=== PATIENT | male | born 1950 | race Caucasian/White ===

== ENCOUNTER 2016-09-09 20:12 | Inpatient (IN) | payer MEDICARE, OTHER ==
[2016-09-09 21:08] LABS: MPV 7.8 fL (7.4-10.4)
[2016-09-09 21:17] LABS: BLOOD UREA NITROGEN 11 MG/DL (9-20); CALCIUM 8.4 MG/DL (8.4-10.2); CALCULATED OSMOLALITY 257 MOs/Kg (270-290); CHLORIDE 96 mEq/L (98-107); GLUCOSE 99 MG/DL (70-99); SODIUM LEVEL 134 mEq/L (137-146); TOTAL PROTEIN 7.2 G/DL (6.3-8.2)
[2016-09-09 22:47] LABS: ALL NEG? NO
--- NOTE | 2016-09-09 22:59 | EDPRACDOC ---
- General Information Chief Complaint: Generalized Weakness Stated Complaint: UTI Time Seen by Provider: 09/09/16 22:33 Information Source: Patient Home Medications: Home Medications Amitriptyline HCl [Elavil] 100 mg PO HS 09/18/13 Benazepril/Hydrochlorothiazide [Lotensin Hct Tablet (20mg/25mg)] 1 tab PO DAILY 09/18/13 Diazepam [Valium] 10 mg PO TID PRN 09/18/13 Oxycodone Immediate Release [Oxycodone Immediate Release (OxyIR)] 15 mg PO TID PRN 09/18/13 Zolpidem Tartrate [Ambien] 10 mg PO HS PRN 09/18/13 Aspirin [Aspirin EC] 325 mg PO DAILY #120 tablet. 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 INTERMITTENT FEVERS. NO PCP EVAL FOR THIS YET. STABLE MEDICATIONS BY PCP AT [facility]. POS COUGH, POS DYSURIA. ED Past Medical History - History Reviewed Yes Nurses notes reviewed and agree except as marked Information Unobtainable: Yes Unable to obtain information due to patient condition (MOST INFOR FROM DAUGHTER) - Patient Medical History Cardiac History: Reports: Hypertension, Heart Attack (1995), Cardiac Catheterization Respiratory History: Reports: Asthma, COPD, Pneumonia (2012) GI/ History: Reports: Gastroesophageal Reflux, Ulcer (15-16 years) Musculoskeletal History: Reports: Arthritis, Osteoarthritis Psychological History: Reports: Depression, Anxiety Systemic History: Reports: Cancer, Anemia Additional Past Medical History: LUMBAR SURG S/P SCI WITH DELIA LE WEAKNESS Surgical History: Reports: Cardiac Catheterization Additional Past Surgical History: LUMBAR SURG S/P SCI WITH DELIA LE WEAKNESS - Family Medical History Reports: Hypertension (brother), Diabetes (MOM AND BROTHER), Cancer (MOTHER), Stroke (BROTHER), Cardiac Disorders (dad) - Social Medical History Smoking Status: Heavy tobacco smoker (5 or more cigarettes/day or daily pipe/ cigar) EDM Review of Systems - Review of Systems ROS Negative Except as Marked: Yes All systems reviewed and were negative except as marked ROS Unobtainable: Yes Review of systems cannot be obtained due to the patient's medical condition (MOST INFO FROM DAUGHTER) Constitutional: Fever, Loss of Appetite, Weakness - Physical Exam Constitutional: Alert, Cachectic, Confused Oriented to: Person, Place, Other (INTERMITTENT HALLUCINATIONS AND RAMBLING CONVERSTATION) Last recorded Vital Signs: Last Vital Signs Temp 98.5 F 09/09/16 20:49 Pulse 93 09/09/16 22:38 Resp 20 09/09/16 22:38 BP 127/72 09/09/16 22:38 Pulse Ox 91 09/09/16 22:38 Oxygen Pulse Oxygen Saturation 91 O2 Device Room Air Oxygen Flow Rate Fraction of Inspired Oxygen ( FIO2) - HEENT Head: Normal Eye Exam: negative: Pale Conjunctiva, Scleral Icterus Oropharynx: Membranes Dry Nose: No Symptoms Reported Neck: Normal. negative: Edema - Respiratory/Cardiovascular Respiratory: Rales (DELIA LE L>R). negative: Accessory Muscle Use, Tachypnea Cardiovascular: Normal - GI Auscultation: Normal Palpation: Normal Tenderness: Non tender Ingram's Sign: Negative - Musculoskeletal Back: Normal. negative: CVA Tenderness, Thoracic Step-off, Lumbar Step-off, Thoracic TTP, Lumbar TTP Extremities: Normal. negative: Pedal Edema - Integumentary Skin: Normal, Warm, Dry - Neurologic Memory Impaired: Short-term Motor Function: Normal Mood Description: Flat Thought: Flight of Ideas, Rambling Conversation. negative: Coherent - Differential Diagnosis Dehydration, Delirium tr, Hypercalcemia, Hypernatremia, Hyponatremia, Drug Overdose, Medication toxicity, Sepsis, UTI - Results 09/09/16 20:52 09/09/16 20:52 WBC 28.1 xk/uL (3.8-10.8) H 09/09/16 20:52 RBC 4.65 xM/uL (4.70-6.10) L 09/09/16 20:52 Hgb 14.4 g/dL (14.0-18.0) 09/09/16 20:52 Hct 42.6 % (42-52) 09/09/16 20:52 MCV 92 fL (80-94) 09/09/16 20:52 MCH 31.0 pg (27-32) 09/09/16 20:52 MCHC 33.8 g/dl (33-36) 09/09/16 20:52 RDW 15.1 % (11.5-14.5) H 09/09/16 20:52 Plt Count 251 xk/uL (130-400) 09/09/16 20:52 MPV 7.8 fL (7.4-10.4) 09/09/16 20:52 Sodium 134 mEq/L (137-146) L 09/09/16 20:52 Potassium 4.4 mEq/L (3.5-5.1) 09/09/16 20:52 Chloride 96 mEq/L (98-107) L 09/09/16 20:52 Carbon Dioxide 30 mMOL/L (22-33) 09/09/16 20:52 Anion Gap 12 mEq/L (8-16) 09/09/16 20:52 BUN 11 MG/DL (9-20) 09/09/16 20:52 Creatinine 0.80 MG/DL (0.66-1.25) 09/09/16 20:52 Estimated GFR (MDRD) > 60 mL/min (>=60) 09/09/16 20:52 Glucose 99 MG/DL (70-99) 09/09/16 20:52 Calculated Osmolality 257 MOs/Kg (270-290) L 09/09/16 20:52 Calcium 8.4 MG/DL (8.4-10.2) 09/09/16 20:52 Total Bilirubin 0.8 MG/DL (0.2-1.3) 09/09/16 20:52 AST 28 IU/L (17-59) 09/09/16 20:52 ALT 26 IU/L (21-72) 09/09/16 20:52 Alkaline Phosphatase 84 IU/L (50-160) 09/09/16 20:52 Total Protein 7.2 G/DL (6.3-8.2) 09/09/16 20:52 Albumin 4.0 G/DL (3.5-5.0) 09/09/16 20:52 Lipase < 10 U/L (23-300) L 09/09/16 20:52 Lab Results 09/09/16 09/09/16 20:52 20:52 WBC 28.1 H RBC 4.65 L Hgb 14.4 Hct 42.6 MCV 92 MCH 31.0 MCHC 33.8 RDW 15.1 H Plt Count 251 MPV 7.8 Sodium 134 L Potassium 4.4 Chloride 96 L Carbon Dioxide 30 Anion Gap 12 BUN 11 Creatinine 0.80 Estimated GFR (MDRD) > 60 Glucose 99 Calculated Osmolality 257 L Calcium 8.4 Total Bilirubin 0.8 AST 28 ALT 26 Alkaline Phosphatase 84 Total Protein 7.2 Albumin 4.0 Lipase < 10 L - EKG EKG #1 EKG Time: 23:07 -: Yes EKG interpreted by me Rate: bpm: 86 Cordell: Normal Block: AVB Hypertrophy: None ST: [facility] ED Critical Care Note - Critical Care Note Total Time (mins): 35 - Departure Disposition: Admit IP To This Hospital Condition: Stable Final Diagnosis: Community acquired bacterial pneumonia, Delirium due to another medical condition, COPD exacerbation, Acute respiratory failure with hypoxia Instructions: Weakness (General) Education/Counseling Given To: Patient, Family Member Education/Counseling Given Regarding: Diagnosis, Treatment Referrals: None,No Provider [Primary Care Provider] - One Week Decision to Admit Time: 23:55 Decision to admit date: 09/10/16 Decision to admit: from ED - Physician Consulted Hospitalist Time Called: 23:52 Provider Called: Mirza Pablo Time Assembler Returned Call: 23:55
[2016-09-09 23:05] LABS: LEUKOCYTES/URINE NEG (NEGATIVE); NITRITE/URINE NEG (NEGATIVE); RBC/URINE 0-2 (0-2); URINE OCCULT BLOOD NEG (NEG/TRACE); WBC/URINE 0-2 (0-2)
[2016-09-09 23:06] LABS: MDMA* NEG (NEGATIVE); METHAMPHETAMINES NEG (NEGATIVE); OXYCODONE *POSITIVE* (NEGATIVE)
[2016-09-09 23:18] LABS: SEG NEUTROPHIL 86 % (45-76)
[2016-09-09 23:21] LABS: ABG Draw Site Left Radial; ALLEN'S TEST PASS; BEb 6.5 (+/- 2); TCO2 34.4 MMOL/L (23-27)
[2016-09-09] MEDS ORDERED: METHYLPREDNISOLONE 125 MG/2 ML VIAL IV ONE (23:44)
[2016-09-09] MEDS ORDERED: Albuterol/Ipratropium Neb 3 ML NEB NEB ONE (23:44)
[2016-09-09] MEDS ORDERED: CEFTRIAXONE 1 GM in D5W 100 ML IV ONE (23:45)
[2016-09-09] MEDS ORDERED: AZITHROMYCIN 500 MG in D5W 250 ML IV ONE (23:45)
[2016-09-09 23:46] LABS: ETOH-MGDL < 10 mg/dL
[2016-09-10] MEDS ORDERED: NS 1,000 ML IV ONE (00:01)
[2016-09-10] MEDS: NS 1,000 ML IV ONE ×2 (00:07→00:08)
--- NOTE | 2016-09-10 00:33 | DIRPT ---
CLINICAL DATA: Shortness of breath. Confusion for 1 week. Intermittent fever. EXAM: CHEST 2 VIEW COMPARISON: 10/24/2013 FINDINGS: Ill-defined bibasilar opacities, left greater than right. Heart size and mediastinal contours are normal. No pulmonary edema. No pleural effusion or pneumothorax. No acute osseous abnormalities are seen. IMPRESSION: Ill-defined bibasilar opacities, fever atelectasis. Pneumonia or aspiration could have a similar appearance. Electronically Signed By: Abeba Alvarez M.D. On: 09/10/2016 00:30
--- NOTE | 2016-09-10 00:59 | HISTPHYS ---
- Chief Complaint altered mental status, shortness of breath - History of Present Illness PRIMARY CARE PROVIDER: Elise Tan and Dr. Omi Trujillo HPI: The patient is 66 yo man with COPD and coronary artery disease who presents with shortness of breath and a sharp pain left upper chest. Woke up yesterday morning and just could not breathe. Tried sticking his head in the freezer and that did not help. He did not have the same feelings he had in 1995 when he had his heart attack. The issue today is primarily the shortness of breath. Last night he had some vomiting. At some point he became confused. Onset: Has had shortness of breath x 2 weeks but much worse yesterday. Duration : intermittent. Location: Left upper chest. Radiation: to back. Character: Sharp. Up to 8/10 at times. Mostly with coughing. Alleviated by: Nothing. Exacerbated by: With coughing and with pressing on the area. Associated Symptoms: Shortness of breath. Wheezing. Coughing productive of yellow sputum. Fever 102-103 several days. Chills. No diaphoresis. Chest pain, occasional palpitations. No weight gain in last week. No leg swelling. Nausea and vomiting. Treatments: none at home except usual medications. He stopped his blood pressure medications 2 years ago. - Medical History Cardiac History: Reports: Hypertension, Heart Attack (1995), Cardiac Catheterization Respiratory History: Reports: Asthma, COPD, Pneumonia (2012) GI/ History: Reports: Gastroesophageal Reflux, Ulcer (15-16 years) Musculoskeletal History: Reports: Arthritis (chronic pain. 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 10/25/13 Cefuroxime Axetil [Ceftin] 1 tab PO BID 12/27/13 Nitroglycerin 0.4 mg SL Q10MIN PRN 12/27/13 Amoxicillin 500 mg PO TID 12/29/13 Guaifenesin [Robitussin] 10 ml PO Q4H PRN 12/29/13 Oxycodone HCl/Acetaminophen [Percocet 5-325 mg Tablet] 1 tab PO Q4H PRN Above list is old and not yet updated. Patient takes short acting oxycodone and also an extended release narcotic. He also takes Valium. Will confirm home medications in the am. - Family History Reports: Hypertension (brother), Diabetes (MOM AND BROTHER), Cancer (MOTHER), Stroke (BROTHER), Cardiac Disorders (Father and brother with [place]. Mother heart disease.) - Social History Smoking Status: Heavy tobacco smoker (5 or more cigarettes/day or daily pipe/ cigar) (Currently between half and 1 ppd.) Social History: Denies: Alcohol Use, Substance Use Disorder - Review of Systems GENERAL: Fever, chills. No diaphoresis. Positive for fatigue/malaise. HEENT: No ear pain or discharge. No nasal discharge or bleeding. No throat pain or swelling. No eye pain or eye redness. RESPIRATORY: Cough, wheezing, and shortness of breath. CARDIOVASCULAR: Chest pain and palpitations. GI: Nausea and vomiting. No abdominal pain, diarrhea, constipation, or bloody stool. NEUROLOGICAL: No headache or focal weakness. INTEGUMENT: no rashes, itching, or lesions. LYMPHATIC SYSTEM: no lymph node swelling or pain. MUSCULOSKELETAL: no new pain or joint swelling. GENITOURINARY: No dysuria or hematuria. ENDOCRINE: No polyuria or polydipsia. HEME: No chronic anemia, bleeding, or easy bruising. - Physical Exam Vital Signs: Initial Vitals Temperature 98.5 F 09/09/16 20:49 Pulse Rate 92 09/09/16 20:49 Respiratory Rate 20 09/09/16 20:49 Blood Pressure 115/72 01/12/17 20:49 Pulse Oxygen Saturation 90 L 09/09/16 20:49 - Other Exam Other Exam Findings: GENERAL: Ill-appearing, well nourished, in acute distress. HEENT: Normocephalic, atraumatic; pupils equal and round. Nares patent, without discharge or bleeding. No oropharyngeal lesions or erythema. Mucous membranes are dry. NECK: is supple, no masses, trachea midline. RESPIRATORY: Clear to auscultation bilaterally. Chest wall movements are symmetric. Tachypnea. Bilateral rhonchi. Inspiratory and expiratory wheezing bilaterally. No use of accessory muscles to breathe. No rales. CARDIOVASCULAR: Normal S1, S2. Murmur 2/6 systolic. No rubs, or gallops. PMI non -displaced. Carotids: no carotid bruits. No bradycardia or tachycardia. DP pulses 2+ bilaterally. GI: soft, non-distended, normal active bowel sounds. No hepatosplenomegaly. Mild epigastric tenderness. INTEGUMENT: Clean, dry, and intact. No rashes. Nevus on right face that is very dark to black, approximately 0.5 cm diameter. MUSCULOSKELETAL: Moving all extremities. No cyanosis. No clubbing. Edema: none bilaterally. NEUROLOGICAL: Cranial nerves 2-12 grossly intact. Motor 4/5 throughout. Reflexes : 1+ bilaterally. Babinski: toes downgoing bilaterally. Intact Finger to nose. Sensory grossly intact to light touch. Intact rapid alternating movements bilaterally. No pronator drift. PSYCHIATRIC: Oriented to person and date. Thought he was in [facility] ICU. Normal and appropriate affect. LYMPHATIC: No cervical lymphadenopathy. No supraclavicular lymphadenopathy. - Lab Results Laboratory Results - last 24 hr 09/09/16 09/09/16 09/09/16 20:52 20:52 22:40 WBC 28.1 H RBC 4.65 L Hgb 14.4 Hct 42.6 MCV 92 MCH 31.0 MCHC 33.8 RDW 15.1 H Plt Count 251 MPV 7.8 Neut % (Auto) Cancelled Lymph % (Auto) Cancelled [place] % (Auto) Cancelled Eos % (Auto) Cancelled Baso % (Auto) Cancelled Absolute Neuts (auto) Cancelled Absolute Lymphs (auto) Cancelled Seg Neuts % (Manual) 86 H Band Neutrophils % 3 Lymphocytes % (Manual) 8 L Monocytes % (Manual) 3 Absolute Neutrophils 25.01 H Absolute Lymphocytes 2.25 Toxic Granulation Tr Platelet Estimate Norm RBC Morphology Norm Puncture Site pH pCO2 pO2 HCO3 Total CO2 Base Excess FiO2 % Specimen Drawn By Sodium 134 L Potassium 4.4 Chloride 96 L Carbon Dioxide 30 Anion Gap 12 BUN 11 Creatinine 0.80 Estimated GFR (MDRD) > 60 Glucose 99 Calculated Osmolality 257 L Lactic Acid Calcium 8.4 Total Bilirubin 0.8 AST 28 ALT 26 Alkaline Phosphatase 84 Total Protein 7.2 Albumin 4.0 Lipase < 10 L Urine Color Yellow Urine Clarity Clear Urine pH 6.0 Ur Specific Wanda 1.010 Urine Protein Neg Urine Glucose (UA) Neg Urine Ketones 1+ H Urine Occult Blood Neg Urine Nitrite Neg Urine Bilirubin Neg Urine Urobilinogen <2.0 Ur Leukocyte Esterase Neg Urine RBC 0-2 Urine WBC 0-2 Ur Epithelial Cells Occ Urine Mucus Occ Urine Opiates Screen Ur Oxycodone Screen Urine Methadone Screen Ur Barbiturates Screen Ur Tricyclics Screen Ur Phencyclidine Scrn Ur Amphetamines Screen U Methamphetamines Scrn Urine MDMA Screen U Benzodiazepines Scrn Urine Cocaine Screen Ur THC Screen Plasma/Serum Ethyl Alc 09/09/16 09/09/16 09/09/16 22:40 23:04 23:04 WBC RBC Hgb Hct MCV MCH MCHC RDW Plt Count MPV Neut % (Auto) Lymph % (Auto) [place] % (Auto) Eos % (Auto) Baso % (Auto) Absolute Neuts (auto) Absolute Lymphs (auto) Seg Neuts % (Manual) Band Neutrophils % Lymphocytes % (Manual) Monocytes % (Manual) Absolute Neutrophils Absolute Lymphocytes Toxic Granulation Platelet Estimate RBC Morphology Puncture Site pH pCO2 pO2 HCO3 Total CO2 Base Excess FiO2 % Specimen Drawn By Sodium Potassium Chloride Carbon Dioxide Anion Gap BUN Creatinine Estimated GFR (MDRD) Glucose Calculated Osmolality Lactic Acid 0.9 Calcium Total Bilirubin AST ALT Alkaline Phosphatase Total Protein Albumin Lipase Urine Color Urine Clarity Urine pH Ur Specific Wanda Urine Protein Urine Glucose (UA) Urine Ketones Urine Occult Blood Urine Nitrite Urine Bilirubin Urine Urobilinogen Ur Leukocyte Esterase Urine RBC Urine WBC Ur Epithelial Cells Urine Mucus Urine Opiates Screen *positive* H Ur Oxycodone Screen *positive* H Urine Methadone Screen Neg Ur Barbiturates Screen Neg Ur Tricyclics Screen *positive* H Ur Phencyclidine Scrn Neg Ur Amphetamines Screen Neg U Methamphetamines Scrn Neg Urine MDMA Screen Neg U Benzodiazepines Scrn *positive* H Urine Cocaine Screen Neg Ur THC Screen Neg Plasma/Serum Ethyl Alc 09/09/16 23:15 WBC RBC Hgb Hct MCV MCH MCHC RDW Plt Count MPV Neut % (Auto) Lymph % (Auto) [place] % (Auto) Eos % (Auto) Baso % (Auto) Absolute Neuts (auto) Absolute Lymphs (auto) Seg Neuts % (Manual) Band Neutrophils % Lymphocytes % (Manual) Monocytes % (Manual) Absolute Neutrophils Absolute Lymphocytes Toxic Granulation Platelet Estimate RBC Morphology Puncture Site Left radial pH 7.400 pCO2 53.0 H pO2 50.0 L HCO3 32.8 H Total CO2 34.4 H Base Excess 6.5 H FiO2 % .21 Specimen Drawn By Robcha Sodium Potassium Chloride Carbon Dioxide Anion Gap BUN Creatinine Estimated GFR (MDRD) Glucose Calculated Osmolality Lactic Acid Calcium Total Bilirubin AST ALT Alkaline Phosphatase Total Protein Albumin Lipase Urine Color Urine Clarity Urine pH Ur Specific Wanda Urine Protein Urine Glucose (UA) Urine Ketones Urine Occult Blood Urine Nitrite Urine Bilirubin Urine Urobilinogen Ur Leukocyte Esterase Urine RBC Urine WBC Ur Epithelial Cells Urine Mucus Urine Opiates Screen Ur Oxycodone Screen Urine Methadone Screen Ur Barbiturates Screen Ur Tricyclics Screen Ur Phencyclidine Scrn Ur Amphetamines Screen U Methamphetamines Scrn Urine MDMA Screen U Benzodiazepines Scrn Urine Cocaine Screen Ur THC Screen Plasma/Serum Ethyl Alc - Diagnostic Findings EK bpm. Normal sinus rhythm. Left anterior fascicular block. Reviewed EKG personally. Chest x-ray, viewed personally: EXAM: CHEST 2 VIEW COMPARISON: 10/24/2013 FINDINGS: Ill-defined bibasilar opacities, left greater than right. Heart size and mediastinal contours are normal. No pulmonary edema. No pleural effusion or pneumothorax. No acute osseous abnormalities are seen. IMPRESSION: Ill-defined bibasilar opacities, fever atelectasis. Pneumonia or aspiration could have a similar appearance. - Assessment (1) Aspiration pneumonia J69.0 - PNEUMONITIS DUE TO INHALATION OF FOOD AND VOMIT Acute Present on Admission: Yes Pneumonia. Severe. Requiring continuous oxygen support. Type: Likely aspiration pneumonia. Criteria for diagnosis: Chest x-ray suggestive of pneumonia, rhonchi on physical exam. Likely bacterial. Plan: Sputum culture has been ordered. Treat with IV Levaquin due to possible aspiration. Consider adding Zosyn. Monitor oxygen saturation levels. (2) Acute respiratory failure with hypoxia J96.01 - ACUTE RESPIRATORY FAILURE WITH HYPOXIA Acute Present on Admission: Yes Patient has dyspnea and is not improving. Patient's PO2 is low. Plan: Place patient on oxygen by Venti Mask 40% and increase as needed. Monitor oxygen saturation levels and keep O2 sats greater than 92%. (3) COPD exacerbation J44.1 - CHRONIC OBSTRUCTIVE PULMONARY DISEASE W (ACUTE) EXACERBATION Acute Present on Admission: Yes COPD exacerbation, severe. Plan: Nebs of Duoneb q 6 hours scheduled and albuterol q 2 hours prn. Sputum culture ordered. IV Antibiotics. IV methylprednisolone. Continuous oxygen support. (4) Metabolic encephalopathy G93.41 - METABOLIC ENCEPHALOPATHY Acute Present on Admission: Yes Patient has had intermittent confusion at the same time as he had some vomiting. Combination could have caused aspiration pneumonia. Suspect that the confusion may be due in part to his respiratory failure and infection, but also suspect that his high doses of prescription narcotics and benzodiazepines are the primary culprit for his confusion and metabolic encephalopathy. Plan: Lower the doses of prn valium and short acting narcotic. Hold the extended release narcotic. Patient strongly cautioned that it is dangerous for anyone but especially for someone with his respiratory condition to take large doses of narcotics and benzodiazepines, and told him that he could from overdose of these medications. Strongly advised patient to consider reducing his narcotic and sedating medications. (5) Chest pain R07.9 - CHEST PAIN, UNSPECIFIED Acute Present on Admission: Yes Chest pain is pleuritic and associated with coughing. Plan: Continue treatment for respiratory conditions. PRN cough medication. (6) Tobacco abuse Z72.0 - TOBACCO USE Acute Present on Admission: Yes Counseled to quit. Case Care Discussed with: Patient, Nursing Staff
[2016-09-10] MEDS: Levofloxacin 750 mg/150 ml D5W 750 MG/150 ML RTU IV SCH (01:04)
[2016-09-10] MEDS ORDERED: GUAIFEN 100 MG-DEXTROMETH 10 MG PER 5 ML PO PRN (03:36)
[2016-09-10] MEDS ORDERED: BISACODYL 5 MG TAB PO PRN (03:36)
[2016-09-10] MEDS ORDERED: SIMETHICONE 80 MG TAB PO PRN (03:36)
[2016-09-10] MEDS ORDERED: BENZONATATE 100 MG PERLES PO PRN (03:36)
[2016-09-10] MEDS ORDERED: PROMETHAZINE 25 MG/ML VIAL IV PRN (03:36)
[2016-09-10] MEDS ORDERED: TEMAZEPAM 15 MG CAP PO PRN (03:36)
[2016-09-10] MEDS ORDERED: ONDANSETRON HCL 4 MG/2 ML VIAL IV PRN (03:36)
[2016-09-10] MEDS ORDERED: SENNA CONCENTRATE TAB PO PRN (03:36)
[2016-09-10] MEDS ORDERED: Docusate Sodium 100 MG CAP PO PRN (03:36)
[2016-09-10] MEDS ORDERED: Albuterol/Ipratropium Neb 3 ML NEB NEB PRN (03:38)
[2016-09-10] MEDS ORDERED: ALBUTEROL 0.083% 3 ML NEB NEB PRN (03:38)
[2016-09-10] MEDS ORDERED: Vaccine Screening Complete SCH (04:00)
[2016-09-10] MEDS: NS 1,000 ML IV SCH ×3 (04:49→22:12)
[2016-09-10] MEDS: MORPHINE 2 MG/ML INJECTION IV PRN ×3 (04:49→19:51)
[2016-09-10 07:10] LABS: MPV 7.4 fL (7.4-10.4)
[2016-09-10 07:49] LABS: BLOOD UREA NITROGEN 9 MG/DL (9-20); CALC CORRECTED 8.9 MG/DL (8.4-10.2); CALCIUM 8.1 MG/DL (8.4-10.2); CALCULATED OSMOLALITY 264 MOs/Kg (270-290); CHLORIDE 102 mEq/L (98-107); GLUCOSE 123 MG/DL (70-99); SODIUM LEVEL 137 mEq/L (137-146)
[2016-09-10] MEDS ORDERED: PIPERACILLIN AND TAZOBACTAM 4.5 GM in D5W 100 ML IV SCH (09:00)
[2016-09-10] MEDS: Aspirin (Orange Enteric Coated) 325 mg tab PO SCH (11:39)
[2016-09-10] MEDS: ENOXAPARIN 40 MG/0.4 ML PFS SQ SCH (12:55)
[2016-09-10] MEDS: PIPERACILLIN AND TAZOBACTAM 4.5 GM in D5W 100 ML IV SCH (17:22)
[2016-09-10] MEDS: ATORVASTATIN 40 MG TAB PO SCH (17:22)
[2016-09-10] MEDS ORDERED: DIAZEPAM 5 MG PO PRN (22:31)
[2016-09-10] MEDS ORDERED: DIAZEPAM 5 MG TAB PO PRN (23:01)
[2016-09-11] MEDS: PIPERACILLIN AND TAZOBACTAM 4.5 GM in D5W 100 ML IV SCH ×5 (00:22→16:26)
[2016-09-11] MEDS: MORPHINE 2 MG/ML INJECTION IV PRN ×3 (00:32→16:27)
[2016-09-11] MEDS: Levofloxacin 750 mg/150 ml D5W 750 MG/150 ML RTU IV SCH (01:16)
[2016-09-11] MEDS ORDERED: FLU VACCINE (Afluria) 0.5 ML DOSE IM ONE (08:00)
[2016-09-11] MEDS: NS 1,000 ML IV SCH ×2 (09:04→17:55)
[2016-09-11] MEDS: Aspirin (Orange Enteric Coated) 325 mg tab PO SCH (09:06)
[2016-09-11] MEDS: OXYCODONE HCL 5 MG TABLET PO PRN (09:17)
[2016-09-11] MEDS ORDERED: GLUCAGON 1 MG VIAL SQ PRN (09:34)
[2016-09-11] MEDS ORDERED: DEXTROSE 25 GM/50 ML PFS IV PRN (09:34)
[2016-09-11] MEDS ORDERED: GLUCOSE (ORAL GEL) 15 GM TUBE PO PRN (09:34)
--- NOTE | 2016-09-11 09:49 | GENMEDPROG ---
Subjective Note: Patient in bed responsive follows commands. Visibly short of breath with audible rhonchi. Coughing producing fair amount thick yellowish greenish sputum denies any hemoptysis. Dyspneic with minimal exertion. Notes Reviewed: Yes Events from last night noted and discussed with Clinical Staff Current Medication List: Reviewed Currently: Reports: Cough, Wheezing, GIRON, SOB, Sputum, Tobacco Use/Hx, Reflux Sx DVT Prophylaxis: Yes - Physical Examination Vital Signs and I&O: Last Vital Signs Temp 97.8 F 09/11/16 07:29 Pulse 67 09/11/16 07:29 Resp 20 09/11/16 07:29 BP 104/64 09/11/16 07:29 Pulse Ox 93 09/11/16 07:29 Oxygen Pulse Oxygen Saturation 93 O2 Device Nasal Cannula Oxygen Flow Rate 2 Fraction of Inspired Oxygen ( 2 FIO2) Intake & Output 09/08/16 09/09/16 09/10/16 09/11/16 23:59 23:59 23:59 23:59 Intake Total 1119 1462 Output Total 1525 1600 Balance -406 -138 Patient's weight 81.601 kg 82.463 kg General: Alert, Oriented x3, Cooperative, Mild distress HEENT: Normal, PERRLA, EOMI, Anicteric Sclera Neck: Non-tender, Normal inspection Lymphatics: Normal Respiratory: Diminished, Rhonchi, Wheezes. negative: Accessory Muscle Use, Tachypnea Cardiovascular: Regular rate, Normal S1, Normal S2, Murmurs GI: Normal bowel sounds, Soft, Non tender, No hepatospenomegaly, No masses Extremities/Musculoskeletal: Normal pulses, Edema, DJD Skin: Warm,Dry and Intact, No rashes, No breakdown, No significant lesion Neurological: Normal speech, Normal tone, Cranial nerves 3-12 NL Psych/Mental Status: Appropriate, Anxious Lab/DI/Studies Reviewed: Allergies adhesive Allergy (Verified 09/10/16 03:00) See Comments FRAGILE SKIN-USE PAPER TAPE Last Vital Signs Temp 97.8 F 09/11/16 07:29 Pulse 67 09/11/16 07:29 Resp 20 09/11/16 07:29 BP 104/64 09/11/16 07:29 Pulse Ox 93 09/11/16 07:29 09/10/16 07:03 09/10/16 07:03 - Assessment (1) Acute respiratory failure with hypoxia Acute J96.01 - ACUTE RESPIRATORY FAILURE WITH HYPOXIA Comment/Plan: Continue supplemental O2 nebulized bronchodilators. Monitor pulmonary status. Repeat PA and lateral chest x-ray and ABG in the morning. (2) COPD exacerbation Acute J44.1 - CHRONIC OBSTRUCTIVE PULMONARY DISEASE W (ACUTE) EXACERBATION Comment/Plan: Continue nebulized bronchodilators mucolytics and IV steroids. Continue aggressive pulmonary toilet. (3) Community acquired bacterial pneumonia Acute J15.9 - UNSPECIFIED BACTERIAL PNEUMONIA Comment/Plan: Continue broad- spectrum antibiotics in the form of Zosyn and Levaquin. (4) Metabolic encephalopathy Acute G93.41 - METABOLIC ENCEPHALOPATHY Comment/Plan: Mentation much improved. Continue supportive care. (5) GERD (gastroesophageal reflux disease) Acute K21.9 - GASTRO-ESOPHAGEAL REFLUX DISEASE WITHOUT ESOPHAGITIS Qualifiers: Esophagitis presence: without esophagitis Qualified Code(s): K21.9 - Gastro -esophageal reflux disease without esophagitis Comment/Plan: continue ppi (6) Nicotine addiction Acute F17.200 - NICOTINE DEPENDENCE, UNSPECIFIED, UNCOMPLICATED Qualifiers: Nicotine product type: cigarettes Substance use status: unspecified nicotine-induced disorder Qualified Code(s): F17.219 - Nicotine dependence, cigarettes, with unspecified nicotine-induced disorders Comment/Plan: Detailed smoking cessation counseling provided the patient. (7) Chronic back pain Acute M54.9 - DORSALGIA, UNSPECIFIED; G89.29 - OTHER CHRONIC PAIN Qualifiers: Back pain location: low back pain Back pain laterality: unspecified Sciatica laterality: sciatica laterality unspecified Comment/Plan: Continue narcotic analgesics on as needed basis Case Care Discussed with: Patient, Nursing Staff, Respiratory Therapy, Winder Operator Education/Counseling Given To: Patient Education/Counseling Given Regarding: Diagnosis, Treatment, Prognosis, Follow Up Total Time: 55 min . Critical Care: No Code: 28404 (12+)
[2016-09-11] MEDS ORDERED: Albuterol/Ipratropium Neb 3 ML NEB NEB PRN (09:54)
[2016-09-11] MEDS: METHYLPREDNISOLONE 125 MG/2 ML VIAL IV SCH ×3 (11:13→20:52)
[2016-09-11] MEDS: REGULAR INSULIN 100 UNITS/ML - 3 ML VIAL SQ SCH ×3 (13:01→21:03)
[2016-09-11] MEDS: Albuterol/Ipratropium Neb 3 ML NEB NEB SCH ×2 (14:43→20:06)
[2016-09-11] MEDS: ENOXAPARIN 40 MG/0.4 ML PFS SQ SCH (16:25)
[2016-09-11] MEDS: ATORVASTATIN 40 MG TAB PO SCH (16:26)
[2016-09-11] MEDS: GUAIFENESIN 600 MG LA TAB PO SCH (20:52)
[2016-09-11] MEDS ORDERED: CHLORHEXIDINE (HIBICLENS) 4 OZ BOTTLE TOP ONE (21:00)
[2016-09-12] MEDS: Levofloxacin 750 mg/150 ml D5W 750 MG/150 ML RTU IV SCH (01:06)
[2016-09-12] MEDS: NS 1,000 ML IV SCH ×2 (01:09→12:36)
[2016-09-12] MEDS: MORPHINE 2 MG/ML INJECTION IV PRN ×3 (01:11→18:25)
[2016-09-12] MEDS: Albuterol/Ipratropium Neb 3 ML NEB NEB SCH ×4 (01:58→19:45)
[2016-09-12 04:16] LABS: AUTOMATED BASOPHIL 0.1 % (0-2); AUTOMATED LYMPH 7.7 % (17-44); AUTOMATED MONOCYTE 1.8 % (3-10); AUTOMATED NEUTROPHIL 90.4 % (45-76)
[2016-09-12 04:32] LABS: ALLEN'S TEST PASS
[2016-09-12 04:45] LABS: BLOOD UREA NITROGEN 8 MG/DL (9-20); CALCIUM 7.9 MG/DL (8.4-10.2); CALCULATED OSMOLALITY 258 MOs/Kg (270-290); CHLORIDE 100 mEq/L (98-107); GLUCOSE 132 MG/DL (70-99); SODIUM LEVEL 134 mEq/L (137-146)
[2016-09-12] MEDS: METHYLPREDNISOLONE 125 MG/2 ML VIAL IV SCH ×3 (04:47→20:34)
[2016-09-12] MEDS: PANTOPRAZOLE 40 MG TAB PO SCH (04:47)
[2016-09-12] MEDS: PIPERACILLIN AND TAZOBACTAM 4.5 GM in D5W 100 ML IV SCH ×3 (04:49→16:29)
[2016-09-12 04:50] LABS: ABG Draw Site Left Radial
[2016-09-12 04:51] LABS: TCO2 29.2 MMOL/L (23-27)
[2016-09-12] MEDS: REGULAR INSULIN 100 UNITS/ML - 3 ML VIAL SQ SCH ×3 (06:12→16:28)
[2016-09-12] MEDS: GUAIFENESIN 600 MG LA TAB PO SCH ×2 (07:33→20:34)
[2016-09-12] MEDS: OXYCODONE HCL 5 MG TABLET PO PRN (07:33)
[2016-09-12] MEDS: Aspirin (Orange Enteric Coated) 325 mg tab PO SCH (07:33)
--- NOTE | 2016-09-12 09:03 | GENMEDPROG ---
Subjective Note: Patient in bed responsive follows commands, looks better and feels better. Breathing better, still coughing producing fair amount thick sputum no hemoptysis. Still dyspneic with physical exertion. Notes Reviewed: Yes Events from last night noted and discussed with Clinical Staff Current Medication List: Reviewed Currently: Reports: Cough, Wheezing, GIRON, SOB, Sputum, Tobacco Use/Hx, Reflux Sx DVT Prophylaxis: Yes - Physical Examination Vital Signs and I&O: Last Vital Signs Temp 98.2 F 09/12/16 07:40 Pulse 64 09/12/16 07:40 Resp 18 09/12/16 07:40 BP 174/90 09/12/16 07:40 Pulse Ox 95 09/12/16 07:40 Oxygen Pulse Oxygen Saturation 95 O2 Device Nasal Cannula Oxygen Flow Rate 2 Fraction of Inspired Oxygen ( 2 FIO2) Intake & Output 09/09/16 09/10/16 09/11/16 09/12/16 23:59 23:59 23:59 23:59 Intake Total 1119 3609 1560 Output Total 1525 1950 500 Balance -406 1659 1060 Patient's weight 81.601 kg 82.463 kg 90.764 kg General: Alert, Oriented x3, Cooperative, Mild distress HEENT: Normal, PERRLA, EOMI, Anicteric Sclera Neck: Non-tender, Normal inspection Lymphatics: Normal Respiratory: Diminished, Rhonchi, Wheezes. negative: Accessory Muscle Use, Tachypnea Cardiovascular: Regular rate, Normal S1, Normal S2, Murmurs GI: Normal bowel sounds, Soft, Non tender, No hepatospenomegaly, No masses Extremities/Musculoskeletal: Normal pulses, Edema, DJD Skin: Warm,Dry and Intact, No rashes, No breakdown, No significant lesion Neurological: Normal speech, Normal tone, Cranial nerves 3-12 NL Psych/Mental Status: Appropriate, Anxious Lab/DI/Studies Reviewed: Allergies adhesive Allergy (Verified 09/10/16 03:00) See Comments FRAGILE SKIN-USE PAPER TAPE 09/12/16 03:46 09/12/16 03:46 Abnormal Lab Results 09/11/16 09/11/16 09/12/16 17:51 20:29 03:46 RBC Hgb Hct RDW Neut % (Auto) Lymph % (Auto) [place] % (Auto) Absolute Neuts (auto) pCO2 HCO3 Total CO2 Sodium 134 L BUN 8 L Glucose 132 H POC Capillary Glucose 204 H 190 H Calculated Osmolality 258 L Calcium 7.9 L 09/12/16 09/12/16 09/12/16 03:46 04:25 05:53 RBC 3.96 L Hgb 12.2 L Hct 36.2 L RDW 15.0 H Neut % (Auto) 90.4 H Lymph % (Auto) 7.7 L [place] % (Auto) 1.8 L Absolute Neuts (auto) 8.64 H pCO2 47.0 H HCO3 27.8 H Total CO2 29.2 H Sodium BUN Glucose POC Capillary Glucose 124 H Calculated Osmolality Calcium - Assessment (1) Acute respiratory failure with hypoxia Acute J96.01 - ACUTE RESPIRATORY FAILURE WITH HYPOXIA Comment/Plan: Progress on maximal pulmonary therapy. Continue O2 nebs and pulmonary toilet. Wean off the oxygen gradually. (2) COPD exacerbation Acute J44.1 - CHRONIC OBSTRUCTIVE PULMONARY DISEASE W (ACUTE) EXACERBATION Comment/Plan: Continue nebulized bronchodilators mucolytics and IV steroids. Continue aggressive pulmonary toilet. Gradually wean off IV steroids.. (3) Community acquired bacterial pneumonia Acute J15.9 - UNSPECIFIED BACTERIAL PNEUMONIA Comment/Plan: Continue broad- spectrum antibiotics in the form of Zosyn and Levaquin. (4) GERD (gastroesophageal reflux disease) Acute K21.9 - GASTRO-ESOPHAGEAL REFLUX DISEASE WITHOUT ESOPHAGITIS Qualifiers: Esophagitis presence: without esophagitis Qualified Code(s): K21.9 - Gastro -esophageal reflux disease without esophagitis Comment/Plan: continue ppi (5) Metabolic encephalopathy Acute G93.41 - METABOLIC ENCEPHALOPATHY Comment/Plan: Resolved. Mentation back to normal, patient fully alert awake oriented and interactive. (6) Nicotine addiction Acute F17.200 - NICOTINE DEPENDENCE, UNSPECIFIED, UNCOMPLICATED Qualifiers: Nicotine product type: cigarettes Substance use status: unspecified nicotine-induced disorder Qualified Code(s): F17.219 - Nicotine dependence, cigarettes, with unspecified nicotine-induced disorders Comment/Plan: Detailed smoking cessation counseling provided the patient. (7) Chronic back pain Acute M54.9 - DORSALGIA, UNSPECIFIED; G89.29 - OTHER CHRONIC PAIN Qualifiers: Back pain location: low back pain Back pain laterality: unspecified Sciatica laterality: sciatica laterality unspecified Comment/Plan: Continue narcotic analgesics on as needed basis Case Care Discussed with: Patient, Family, Nursing Staff, Fast Food Crew Member Education/Counseling Given To: Patient Education/Counseling Given Regarding: Diagnosis, Treatment, Prognosis, Follow Up Total Time: 45 min . Critical Care: No Code: 69222 (12+)
--- NOTE | 2016-09-12 10:31 | DIRPT ---
CLINICAL DATA: Respiratory failure EXAM: CHEST 2 VIEW COMPARISON: 09/09/2016 FINDINGS: Normal heart size, mediastinal contours, and pulmonary vascularity. Bibasilar atelectasis. Mild bronchitic changes. No definite pulmonary infiltrate, pleural effusion or pneumothorax. Prominent RIGHT first costochondral junction unchanged from previous exams back to 12/28/2011. IMPRESSION: Minimal bronchitic changes with bibasilar atelectasis. Electronically Signed By: Jarrod Watson M.D. On: 09/12/2016 10:28
[2016-09-12] MEDS: MAGNESIUM OXIDE 400 MG TAB PO SCH ×2 (10:53→16:29)
[2016-09-12] MEDS: ATORVASTATIN 40 MG TAB PO SCH (16:29)
[2016-09-12] MEDS: ENOXAPARIN 40 MG/0.4 ML PFS SQ SCH (16:29)
[2016-09-13] MEDS: PIPERACILLIN AND TAZOBACTAM 4.5 GM in D5W 100 ML IV SCH ×3 (00:24→12:00)
[2016-09-13] MEDS: REGULAR INSULIN 100 UNITS/ML - 3 ML VIAL SQ SCH ×3 (00:24→11:02)
[2016-09-13] MEDS: Albuterol/Ipratropium Neb 3 ML NEB NEB SCH ×3 (01:14→14:51)
[2016-09-13] MEDS: Levofloxacin 750 mg/150 ml D5W 750 MG/150 ML RTU IV SCH (02:32)
[2016-09-13] MEDS: MORPHINE 2 MG/ML INJECTION IV PRN (02:35)
[2016-09-13] MEDS: NS 1,000 ML IV SCH ×2 (02:39→08:03)
[2016-09-13] MEDS: METHYLPREDNISOLONE 125 MG/2 ML VIAL IV SCH ×2 (05:41→13:53)
[2016-09-13] MEDS: PANTOPRAZOLE 40 MG TAB PO SCH (05:41)
[2016-09-13 05:46] VITALS: BMI 27.3
[2016-09-13] MEDS: OXYCODONE HCL 5 MG TABLET PO PRN (08:02)
[2016-09-13] MEDS ORDERED: hydrALAZINE 20 MG/ML VIAL IV PRN (09:20)
[2016-09-13] MEDS ORDERED: LISINOPRIL 20 MG TAB PO SCH (10:00)
[2016-09-13] MEDS: Aspirin (Orange Enteric Coated) 325 mg tab PO SCH (10:25)
[2016-09-13] MEDS: GUAIFENESIN 600 MG LA TAB PO SCH (10:25)
[2016-09-13 10:55] VITALS: BP 143/74; PULSE 113
--- NOTE | 2016-09-13 11:46 | PCM.DCS92 ---
- Final/Secondary Discharge Diagnosis (1) Acute respiratory failure with hypoxia Resolved J96.01 - ACUTE RESPIRATORY FAILURE WITH HYPOXIA Present on Admission: Yes Comment: Exercise pulse ox on room air 94%. (2) COPD exacerbation Resolved J44.1 - CHRONIC OBSTRUCTIVE PULMONARY DISEASE W (ACUTE) EXACERBATION Present on Admission: Yes Comment: Continue nebulized bronchodilators mucolytics and po steroids. Continue aggressive pulmonary toilet. (3) Community acquired bacterial pneumonia Ruled-out J15.9 - UNSPECIFIED BACTERIAL PNEUMONIA Present on Admission: Yes Comment: Continue and finish course of p.o. levaquin. (4) GERD (gastroesophageal reflux disease) Acute K21.9 - GASTRO-ESOPHAGEAL REFLUX DISEASE WITHOUT ESOPHAGITIS without esophagitis K21.9 - Gastro-esophageal reflux disease without esophagitis Comment: continue ppi (5) Metabolic encephalopathy Resolved G93.41 - METABOLIC ENCEPHALOPATHY Present on Admission: Yes Comment: Resolved. Mentation back to normal, patient fully alert awake oriented and interactive. (6) Nicotine addiction Chronic F17.200 - NICOTINE DEPENDENCE, UNSPECIFIED, UNCOMPLICATED cigarettes unspecified nicotine-induced disorder F17.219 - Nicotine dependence, cigarettes, with unspecified nicotine-induced disorders Comment: Detailed smoking cessation counseling provided the patient. (7) Chronic back pain Acute M54.9 - DORSALGIA, UNSPECIFIED; G89.29 - OTHER CHRONIC PAIN Present on Admission: Yes low back pain unspecified sciatica laterality unspecified Comment: Continue narcotic analgesics on as needed basis. Follow by [facility] [place] Discharge Disposition: Home Discharge Condition: Improved Cognitive Discharge Status: Unimpaired Fuctional Discharge Status: Independent Physician Follow up/Referrals: None,No Provider [Family Provider] - One Week Olena Guzman PA [Staff Physician Knitting Machine Mechanic] - One Week New Prescriptions: Levofloxacin [Levaquin] 750 mg PO DAILY #7 tablet Lisinopril 20 mg PO DAILY #90 tablet Guaifenesin [Mucinex] 1,200 mg PO BID #20 tbmp.12hr Prednisone 10 mg PO DAILY #30 tab.ds.pk Levalbuterol [Xopenex Hfa] 15 gm IH Q6 #2 inh O2 Device: Room Air Diet at Discharge: Heart Healthy, Low Salt, High Fiber Activity: As Tolerated Call Office For: Worsening Symptoms, Fever over 101 F Discontinue use of:: Alcohol, All Illegal Substances, All Types of Tobacco - DC Summary Notes Hospital Course Note:: Discharge summary on patient named BRYAN ALLEN admitted to [facility] on 09/10/16 by Mirza Pablo MD. Date of discharge is . Patient has initially presented to emergency room on September 10 for evaluation of worsening difficulties breathing cough phlegm production chest tightness and severe wheezes. Patient reported yellowish-greenish sputum fevers and shaking chills and sweats as well. Please refer the admission for further details.. Upon arrival in ED patient was found to be in moderate respiratory distress hypoxic tachypneic and tachycardic, his PaO2 was only 50 on room air. Chest x-ray showed ill-defined bibasilar opacities, favoring atelectasis. Patient was admitted to monitor bed. Outpatient regimen for his chronic medical conditions was continued. Treatment with IV antibiotics supplemental O2 nebulized bronchodilators and IV steroids was instituted. His pulmonary status has slowly improved and stabilized and he was gradually weaned off the oxygen. His exercise pulse ox on room air was 94%. Repeated chest x- ray showed no pneumonia but bronchitic and COPD related changes. During hospital stay patient has remained hemodynamically stable. Detailed smoking cessation counseling was provided the patient. His activity level was gradually advanced and by the time of discharge patient is able to ambulate with minimal exertional dyspnea. It was felt that by September 13 patient has reached maximum benefit of inpatient therapy and in clinically improved and stable condition he is being discharged home to the care of the family his PCP. Total Time: 45 min . Code: 15040 (>30min.) - Physical Exam Vital Signs: Last Vital Signs Temp 97.5 F 09/13/16 07:48 Pulse 113 09/13/16 10:55 Resp 18 09/13/16 10:55 BP 143/74 09/13/16 10:55 Pulse Ox 97 09/13/16 10:55 Oxygen Pulse Oxygen Saturation 97 O2 Device Room Air Oxygen Flow Rate 2 Fraction of Inspired Oxygen ( 2 FIO2) Constitutional: Alert Oriented to: Time, Person, Place, Other (INTERMITTENT HALLUCINATIONS AND RAMBLING CONVERSTATION) - HEENT Head: Normal Eye: Normal. negative: Pale Conjunctiva, Scleral Icterus Oropharynx: Normal ENT EAC: Normal Nose: No Symptoms Reported - Respiratory/Cardiovascular Respiratory: Diminished, Rhonchi, Wheezes. negative: Accessory Muscle Use, Tachypnea Cardiovascular: Normal, Systolic murmur - GI Auscultation: Normal Palpation: Normal Tenderness: Non tender Ingram's Sign: Negative Rectal Exam: Deferred - Exam Deferred: Yes - Musculoskeletal Back: Normal. negative: CVA Tenderness, Thoracic Step-off, Lumbar Step-off, Thoracic TTP, Lumbar TTP Extremities: Normal. negative: Pedal Edema - Integumentary Skin: Normal, Warm, Dry Lymphatics: Normal - Neurologic Memory Impaired: Short-term Motor Function: Normal Cranial Nerve: Normal Cerebellar: Normal Mood Description: Anxious, Flat Thought: Flight of Ideas, Rambling Conversation. negative: Coherent Perception: Normal - Other Exam Other Exam Findings: Allergies adhesive Allergy (Verified 09/10/16 03:00) See Comments FRAGILE SKIN-USE PAPER TAPE Last Vital Signs Temp 97.5 F 09/13/16 07:48 Pulse 113 09/13/16 10:55 Resp 18 09/13/16 10:55 BP 143/74 09/13/16 10:55 Pulse Ox 97 09/13/16 10:55 Discharge Home Medication List Amitriptyline HCl [Elavil] 100 mg PO HS 09/18/13 [History Confirmed 09/10/16] Diazepam [Valium] 10 mg PO BID PRN 09/18/13 [History Confirmed 09/10/16] Oxycodone Immediate Release [Oxycodone Immediate Release (OxyIR)] 15 mg PO QID PRN 09/18/13 [History Confirmed 09/10/16] Aspirin [Aspirin EC] 325 mg PO DAILY #120 tablet. 10/25/13 [Rx Confirmed 09/10] Nitroglycerin 0.4 mg SL Q5MX3 PRN 12/27/13 [History Confirmed 09/10/16] HydrOXYzine HCl (Antihistamine [Atarax] 25 mg PO BID PRN 09/10/16 [History Confirmed 09/10/16] Morphine Sulfate [Morphine Sulfate ER] 30 mg PO Q8H PRN 09/10/16 [History Confirmed 09/10/16] Guaifenesin [Mucinex] 1,200 mg PO BID #20 tbmp.12hr 09/13/16 [Rx] Levalbuterol [Xopenex Hfa] 15 gm IH Q6 #2 inh 09/13/16 [Rx] Levofloxacin [Levaquin] 750 mg PO DAILY #7 tablet 09/13/16 [Rx] Lisinopril 20 mg PO DAILY #90 tablet 09/13/16 [Rx] Prednisone 10 mg PO DAILY #30 tab.ds.pk 09/13/16 [Rx] New Discharge Medications (Rx) Guaifenesin [Mucinex] 1,200 mg PO BID #20 tbmp.12hr 09/13/16 [Rx] Levalbuterol [Xopenex Hfa] 15 gm IH Q6 #2 inh 09/13/16 [Rx] Levofloxacin [Levaquin] 750 mg PO DAILY #7 tablet 09/13/16 [Rx] Lisinopril 20 mg PO DAILY #90 tablet 09/13/16 [Rx] Prednisone 10 mg PO DAILY #30 tab.ds.pk 09/13/16 [Rx] Home Medications Amitriptyline HCl [Elavil] 100 mg PO HS 09/18/13 Diazepam [Valium] 10 mg PO BID PRN 09/18/13 Oxycodone Immediate Release [Oxycodone Immediate Release (OxyIR)] 15 mg PO QID PRN 09/18/13 Aspirin [Aspirin EC] 325 mg PO DAILY #120 tablet. 10/25/13 Nitroglycerin 0.4 mg SL Q5MX3 PRN 12/27/13 HydrOXYzine HCl (Antihistamine [Atarax] 25 mg PO BID PRN 09/10/16 Morphine Sulfate [Morphine Sulfate ER] 30 mg PO Q8H PRN 09/10/16 Guaifenesin [Mucinex] 1,200 mg PO BID #20 tbmp.12hr 09/13/16 Levalbuterol [Xopenex Hfa] 15 gm IH Q6 #2 inh 09/13/16 Levofloxacin [Levaquin] 750 mg PO DAILY #7 tablet 09/13/16 Lisinopril 20 mg PO DAILY #90 tablet 09/13/16 Prednisone 10 mg PO DAILY #30 tab.ds.pk 09/13/16 09/12/16 03:46 09/12/16 03:46 Abnormal Lab Results 09/12/16 09/12/16 09/13/16 15:37 20:18 05:41 POC Capillary Glucose 140 H 136 H 137 H Patient Name: BRYAN ALLEN LOC: U : 1950 AGE: 66 Order Date:09/11/16 Date of Service: Report # [id number] Ord Physician: Getachew Ayers MD Exam # [id number] Emergency Physician: Simran Agrawal MD Exam(s): [id number] RAD/DG CHEST 2V CLINICAL DATA: Respiratory failure EXAM: CHEST 2 VIEW COMPARISON: 09/09/2016 FINDINGS: Normal heart size, mediastinal contours, and pulmonary vascularity. Bibasilar atelectasis. Mild bronchitic changes. No definite pulmonary infiltrate, pleural effusion or pneumothorax. Prominent RIGHT first costochondral junction unchanged from previous exams back to 12/28/2011. IMPRESSION: Minimal bronchitic changes with bibasilar atelectasis. Electronically Signed By: Jarrod Watson M.D. On: 09/12/2016 10:28 Electronically Signed By: Jarrod Watson MD Electronically Signed Date/Time: [id number] Dictate Date/Time: 09/12/16 1027
[2016-09-13] MEDS: MAGNESIUM OXIDE 400 MG TAB PO SCH (12:00)
[2016-09-13 12:20] VITALS: TEMP 97.7
== END 2016-09-13 15:23 | disposition home or self-care (01) | DRG 189 ==
LOC: ED 20:12 → EDINP 09-10 00:53 → PCU 09-10 10:07
PROVIDERS: ADMIT Internal Medicine; ATTEND Internal Medicine
PROC: 039C3ZZ Drainage of Left Radial Artery, Percutaneous Approach (ICD-10-PCS; principal; 2016-09-09)
DX: J96.01 Acute respiratory failure with hypoxia (principal); G93.41 Metabolic encephalopathy; J44.1 Chronic obstructive pulmonary disease with (acute) exacerbation; K21.9 Gastro-esophageal reflux disease without esophagitis; G89.29 Other chronic pain; M54.40 Lumbago with sciatica, unspecified side; F17.210 Nicotine dependence, cigarettes, uncomplicated; Z71.6 Tobacco abuse counseling; Z23 Encounter for immunization; I10 Essential (primary) hypertension; I25.2 Old myocardial infarction
CPT/HCPCS: 36415; 36600; 71020; 80048; 80053; 80307; 81001; 82803; 82962; 83605; 83690; 83735; 85007; 85025; 85027; 87040; 87086; 87804; 90471; 90656; 93005; 94640; 96361; 96365; 96366; 96372; 96375; 98960; 99284; 99406; J0360; J0456; J0696; J1650; J1956; J2270; J2543; J2930; J3490; J7060; J7070; J7620